=== PATIENT | female | born 1965 | race Caucasian/White ===

== ENCOUNTER 2016-12-13 19:54 | Inpatient (IN) | payer BC ==
[~2016-12-13] VITALS: Ht 170.2 cm; Wt 115.0 kg
[~2016-12-13 19:54] MED LIST: ALBUTEROL0.09 MG/A2 IH; ATIVAN0.5 MG PO; B-121000 MCG PO; CORDROL20 MG PO; COZAAR50 MG PO; DEXALONE30 MG PO; DEXILANT60 M1 PO; EFFEXOR XR150 M1 PO; FLEXERIL10 MG PO; HYDROCODONE BIT1 T11 PO; MULTIPLE VITAMI1 TAB PO; ORACEA40 MG PO; PERCOCET 325 MG1 TA2 PO; RANITIDINE HCL300 M2 PO; VITAMIN B1100 MCG/ML IM; ZITHROMAX Z PA250 MG PO
[2016-12-13 20:04] VITALS: BP 146/86
[2016-12-13] MEDS ORDERED: TOPAMAX50 MG PO (20:05)
[2016-12-13] MEDS ORDERED: SYNTHROID25 MCG PO (20:06)
[2016-12-13] MEDS ORDERED: VITAMIN B11000 MCG/M IM (20:07)
[2016-12-13 20:31] LABS: HEMATOCRIT 40.3 % (37.0-47.0); HEMOGLOBIN 13.2 g/dl (12.0-16.0); MEAN CELL VOLUME 82.1 fl (81.0-99.0); MEAN CORPUSCULAR HGB 26.9 pg (27.0-31.0); MEAN CORPUSCULAR HGB CONC 32.8 g/dl (33.0-37.0); MEAN PLATELET VOLUME 9.5 fl (9.6-12.3); PLATELET COUNT AUTOMATED 331 10*3/uL (130-400); RED BLOOD COUNT 4.91 10*6/uL (4.10-5.10); RED CELL DISTRI WIDTH 13.8 % (0-14.5); WHITE BLOOD COUNT 10.2 10*3/uL (4.8-10.8)
[2016-12-13 20:41] LABS: INTERNATIONAL NORM RATIO 0.9 (2.0-3.5); PROTHROMBIN TIME 9.6 SECONDS (9.0-12.4)
[2016-12-13 20:46] LABS: BUN 8 mg/dl (7-24); CARBON DIOXIDE 27 mmol/L (21-32); CHLORIDE 106 mmol/L (98-107); EST GLOM FILT AFRICAN AMERICAN > 60 ml/min; GLUCOSE 93 mg/dL (65-99); POTASSIUM 3.4 mmol/L (3.5-5.1); SODIUM 143 mmol/L (136-145)
[2016-12-13 20:47] LABS: ALBUMIN 3.7 gm/dl (3.1-4.5); ALKALINE PHOSPHATASE 90 U/L (45-117); BILIRUBIN, TOTAL 0.3 mg/dl (0.2-1.0); BUN 9 mg/dl (7-24); CARBON DIOXIDE 28 mmol/L (21-32); CHLORIDE 106 mmol/L (98-107); EST GLOM FILT AFRICAN AMERICAN > 60 ml/min; GLUCOSE 94 mg/dL (65-99); MAGNESIUM 2.2 mg/dL (1.5-2.1); POTASSIUM 3.5 mmol/L (3.5-5.1); SGOT/AST 19 IU/L (3-35); SGPT/ALT 34 U/L (12-78); SODIUM 142 mmol/L (136-145); TOTAL PROTEIN 7.4 gm/dL (6.4-8.2)
[2016-12-13 20:53] LABS: ATYPICAL LYMPHS 3 % (0-0); EOSINOPHIL # 0.2 10*3/uL (0-0.4); EOSINOPHILS 2 % (1-4); METAMYELOCYTES 1 % (0-0); MONOCYTE # 0.9 10*3/uL (0.1-1.0); NEUTROPHILS 59 % (47-73); PLATELET SUFFICIENCY NORMAL (NORMAL); TOTAL CELLS COUNTED 100 #CELLS; TROPONIN I < 0.015 ng/ml (<0.045)
[2016-12-13 20:54] LABS: BURR CELLS FEW; TROPONIN I < 0.015 ng/ml (<0.045)
[2016-12-13 20:56] LABS: MICROCYTOSIS SLIGHT
[2016-12-13 21:00] VITALS: BP 152/82
[2016-12-13 22:52] VITALS: BP 138/93
[2016-12-14 00:30] VITALS: BP 155/89
[2016-12-14 00:37] LABS: CPK 58 U/L (26-192)
[2016-12-14 00:38] LABS: CKMB < 0.5 ng/ml (0.5-3.6); TROPONIN I < 0.015 ng/ml (<0.045)
[2016-12-14] MEDS ORDERED: ATIVAN1 MG PO (02:00)
[2016-12-14] MEDS ORDERED: COZAAR50 M1 PO (02:01)
[2016-12-14] MEDS ORDERED: MULTIPLE VITAMI1 TA3 PO (02:02)
[2016-12-14 06:31] LABS: BASO # 0.1 10*3/uL (0.0-0.1); BASO % 0.7 % (0.0-1.0); EOS # 0.3 10*3/uL (0.0-0.4); EOS % 3.6 % (1.0-4.0); HEMATOCRIT 38.2 % (37.0-47.0); HEMOGLOBIN 12.2 g/dl (12.0-16.0); LYMPH # 2.4 10*3/uL (1.3-4.4); LYMPH % 33.3 % (27.0-41.0); MEAN CELL VOLUME 82.7 fl (81.0-99.0); MEAN CORPUSCULAR HGB 26.4 pg (27.0-31.0); MEAN CORPUSCULAR HGB CONC 31.9 g/dl (33.0-37.0); MONO # 0.6 10*3/uL (0.1-1.0); MONO % 8.1 % (3.0-9.0); NEUT # 3.9 10*3/uL (2.3-7.9); NEUT % 53.8 % (47.0-73.0); PLATELET COUNT AUTOMATED 284 10*3/uL (130-400); RED BLOOD COUNT 4.62 10*6/uL (4.10-5.10); WHITE BLOOD COUNT 7.3 10*3/uL (4.8-10.8)
[2016-12-14 06:45] LABS: CKMB 1.8 ng/ml (0.5-3.6)
[2016-12-14 06:46] LABS: CPK 86 U/L (26-192)
[2016-12-14 06:47] LABS: TROPONIN I < 0.015 ng/ml (<0.045)
[2016-12-14 06:59] LABS: BUN 8 mg/dl (7-24); CARBON DIOXIDE 31 mmol/L (21-32); CHLORIDE 111 mmol/L (98-107); CHOLESTEROL 176 mg/dL (<200); EST GLOM FILT AFRICAN AMERICAN > 60 ml/min; FREE T4 0.95 ng/dl (0.76-1.46); GLUCOSE 90 mg/dL (65-99); HDL CHOLESTEROL 55 mg/dl (40-60); LDL CHOLESTEROL 94 mg/dL (9-159); MAGNESIUM 2.3 mg/dL (1.5-2.1); POTASSIUM 3.6 mmol/L (3.5-5.1); SODIUM 148 mmol/L (136-145); TRIGLYCERIDES 135 mg/dl (<150); VLDL CHOLESTEROL 27 mg/dL (6-40)
[2016-12-14 07:41] LABS: HEMOGLOBIN A1c 5.6 % (4.8-5.6)
[2016-12-14 08:00] VITALS: BP 141/87
[2016-12-14 12:00] VITALS: BP 142/87
[2016-12-14 12:21] LABS: CKMB 1.3 ng/ml (0.5-3.6); CPK 84 U/L (26-192)
[2016-12-14 12:23] LABS: TROPONIN I < 0.015 ng/ml (<0.045)
[2016-12-14 16:00] VITALS: BP 147/85
[2016-12-14 20:00] VITALS: BP 120/71
[2016-12-15] VITALS: BP 136/79
[2016-12-15 08:00] VITALS: BP 111/61
[2016-12-15 08:32] LABS: BUN 8 mg/dl (7-24); CARBON DIOXIDE 27 mmol/L (21-32); CHLORIDE 112 mmol/L (98-107); EST GLOM FILT AFRICAN AMERICAN > 60 ml/min; GLUCOSE 89 mg/dL (65-99); POTASSIUM 3.9 mmol/L (3.5-5.1); SODIUM 144 mmol/L (136-145)
[2016-12-15] MEDS ORDERED: AUGMENTIN 875-875 MG PO (10:05)
[2016-12-15] MEDS ORDERED: D-1000 185 MG-11 TAB PO (10:05)
== END 2016-12-15 10:30 | disposition home or self-care (01) | DRG 872 ==
LOC: ED 19:54 → EDHOLD 21:41 → 4E 22:12
PROVIDERS: Emergency Medicine Emergency Medical Services; Student in an Organized Health Care Education/Training Program
DX: A41.9 Sepsis, unspecified organism (principal); E87.0 Hyperosmolality and hypernatremia; J02.9 Acute pharyngitis, unspecified; D72.810 Lymphocytopenia; E87.6 Hypokalemia; I10 Essential (primary) hypertension; E83.41 Hypermagnesemia; K21.9 Gastro-esophageal reflux disease without esophagitis; E03.9 Hypothyroidism, unspecified; F41.1 Generalized anxiety disorder; E55.9 Vitamin D deficiency, unspecified; E83.51 Hypocalcemia; Z80.0 Family history of malignant neoplasm of digestive organs; Z80.3 Family history of malignant neoplasm of breast; Z98.51 Tubal ligation status; Z90.49 Acquired absence of other specified parts of digestive tract; Z88.8 Allergy status to other drugs, medicaments and biological substances; Z91.048 Other nonmedicinal substance allergy status; Z79.899 Other long term (current) drug therapy

== ENCOUNTER 2019-10-15 08:31 | Emergency (ER) | payer BC ==
[~2019-10-15] VITALS: Ht 167.6 cm; Wt 113.4 kg
[~2019-10-15 08:31] MED LIST changes: +ATIVAN1 MG PO; +AUGMENTIN 875-875 MG PO; +COZAAR50 M1 PO; +D-1000 185 MG-11 TAB PO; +MULTIPLE VITAMI1 TA3 PO; +SYNTHROID25 MCG PO; +TOPAMAX50 MG PO; +VITAMIN B11000 MCG/M IM
[2019-10-15 08:35] VITALS: BP 135/88
== END 2019-10-15 08:56 | disposition home or self-care (01) ==
LOC: ED 08:31
DX: B34.9 Viral infection, unspecified (principal); I10 Essential (primary) hypertension; K21.9 Gastro-esophageal reflux disease without esophagitis; E03.9 Hypothyroidism, unspecified; Z88.8 Allergy status to other drugs, medicaments and biological substances; Z79.899 Other long term (current) drug therapy

== ENCOUNTER → 2020-06-14 | Outpatient (CLI) | payer BC | END | disposition home or self-care (01) | LOC: COVID19 13:03 | PROVIDERS: ATTEND Family Medicine | DX: Z20.828 Contact with and (suspected) exposure to other viral communicable diseases (principal) ==

== ENCOUNTER → 2020-08-25 | Outpatient (CLI) | payer BC | END | disposition home or self-care (01) | LOC: US 13:30 | PROVIDERS: ATTEND Obstetrics & Gynecology | DX: R10.32 Left lower quadrant pain (principal) ==

== ENCOUNTER → 2020-09-06 | Outpatient (CLI) | payer BC | END | disposition home or self-care (01) | LOC: US 14:00 | PROVIDERS: ATTEND Obstetrics & Gynecology | DX: R10.32 Left lower quadrant pain (principal) ==

== ENCOUNTER → 2021-08-28 | Outpatient (CLI) | payer BC | LOC: ORTHO 00:20 | PROVIDERS: ATTEND Orthopaedic Surgery | DX: M19.011 Primary osteoarthritis, right shoulder (principal) ==

== ENCOUNTER → 2022-02-19 | Outpatient (CLI) | payer BC | END | disposition home or self-care (01) | LOC: MRI 07:56 | PROVIDERS: ATTEND Orthopaedic Surgery | DX: S41.011A Laceration without foreign body of right shoulder, initial encounter (principal); S46.911A Strain of unspecified muscle, fascia and tendon at shoulder and upper arm level, right arm, initial encounter; M75.101 Unspecified rotator cuff tear or rupture of right shoulder, not specified as traumatic; M75.51 Bursitis of right shoulder; M19.011 Primary osteoarthritis, right shoulder; X58.XXXA Exposure to other specified factors, initial encounter; Y93.89 Activity, other specified; Y92.89 Other specified places as the place of occurrence of the external cause; Y99.8 Other external cause status ==

== ENCOUNTER → 2022-03-13 | Day surgery (SDC) | payer BC ==
[2022-03-09 14:34] VITALS: BP 134/90
[2022-03-09 15:29] LABS: BUN 8 mg/dl (7-24); CHLORIDE 106 mmol/L (98-107); CREATININE 0.78 mg/dL (0.55-1.02); POTASSIUM 3.8 mmol/L (3.5-5.1); SODIUM 140 mmol/L (136-145)
[2022-03-13] VITALS (7 sets, daily range): BP systolic 131–151; BP diastolic 78–92
[~2022-03-13] VITALS: Ht 170.1 cm; Wt 122.0 kg
[~2022-03-13] MED LIST changes: +COZAAR100 MG PO; -COZAAR50 M1 PO; -EFFEXOR XR150 M1 PO; +EFFEXOR XR75 M1 PO; +HYDROCODONE-AC1 EAC1 PO; +PLAQUENIL200 MG PO; +SIMPONI50 MG/0.5 SC; +SYNTHROID,LEVO75 MCG PO; -SYNTHROID25 MCG PO; -VITAMIN B11000 MCG/M IM; +VITAMIN B121000 MC1 IM
== END | disposition home or self-care (01) ==
LOC: SDC 03-09 14:00
PROVIDERS: ATTEND Orthopaedic Surgery
DX: M75.101 Unspecified rotator cuff tear or rupture of right shoulder, not specified as traumatic (principal); M75.41 Impingement syndrome of right shoulder; M19.011 Primary osteoarthritis, right shoulder; I10 Essential (primary) hypertension; J45.909 Unspecified asthma, uncomplicated; K21.9 Gastro-esophageal reflux disease without esophagitis; F41.9 Anxiety disorder, unspecified; I25.2 Old myocardial infarction; G43.909 Migraine, unspecified, not intractable, without status migrainosus; Z91.048 Other nonmedicinal substance allergy status; Z79.899 Other long term (current) drug therapy

== ENCOUNTER → 2022-03-21 | Outpatient (CLI) | payer BC | END | disposition home or self-care (01) | LOC: ORTHO 02:10 | PROVIDERS: ATTEND Orthopaedic Surgery | DX: M19.011 Primary osteoarthritis, right shoulder (principal); M75.101 Unspecified rotator cuff tear or rupture of right shoulder, not specified as traumatic ==

== ENCOUNTER → 2022-08-31 | Outpatient (CLI) | payer BC | END | disposition home or self-care (01) | LOC: ORTHO 00:53 | PROVIDERS: ATTEND Orthopaedic Surgery | DX: M25.562 Pain in left knee (principal) ==

== ENCOUNTER → 2023-11-15 | Outpatient (CLI) | payer BC | END | disposition home or self-care (01) | LOC: ORTHO 02:11 | PROVIDERS: ATTEND Orthopaedic Surgery | DX: M16.11 Unilateral primary osteoarthritis, right hip (principal) ==